=== PATIENT | female | born 1990 | race Caucasian/White ===

== ENCOUNTER 2017-04-13 04:00 | Inpatient (IN) ==
[2017-04-13] MEDS ORDERED: Ondansetron 4 MG/2 ML VIAL IVP PRN (04:04)
[2017-04-13] MEDS ORDERED: Famotidine 20 MG/2 ML VIAL IVP PRN (04:04)
[2017-04-13] MEDS ORDERED: Naloxone 0.4 MG/ML INJ IVP PRN (04:04)
[2017-04-13] MEDS ORDERED: Metoclopramide 10 MG/2 ML VIAL IVP PRN (04:04)
[2017-04-13] MEDS ORDERED: miSOPROStol 25 MCG TABLET PO ONE (04:06)
[2017-04-13] MEDS ORDERED: Ringers Solution, Lactated 1,000 ML IVC SCH (04:15)
[2017-04-13] MEDS ORDERED: D5% in Lactated Ringers 1,000 ML IVC SCH (04:15)
--- NOTE | 2017-04-13 04:32 | OB/GYN History & Physical ---
Date of Encounter: 04/13/17 Time of Encounter: 04:24 Assessment and Plan (1) 39 weeks gestation of Current visit: Yes Status: Acute Admit for IOL due to obesity with BMI 49. GBS negative. Cytotec for induction. Epidural when requested. Will consider AROM when able. Anticipate . (2) Obesity complicating in third trimester Current visit: Yes Status: Acute (3) Large for gestational age fetus affecting management of mother Current visit: Yes Status: Acute Qualifiers: Fetus number: single or unspecified fetus Trimester: third trimester Qualified Code(s): O36.63X0 - Maternal care for excessive growth, third trimester, not applicable or unspecified History of Present Illness Chief complaint: IOL HPI: Ms. Franklin is a 26 year old female presenting at 39w5d for IOL due to obesity and LGA fetus. Ultrasound on 04/06 shows: VTX postition, placenta is anterior grade 2. MANOJ 15.4 cm. EFW 8 LB 4 OZ +/- 548 g=>90% FHR 125 BPP 8/8. The is otherwise uncomplicated. Blood type O positive. Rubella immune. Serologies and GBS negative. Past Med Surg Social Fam HX - Past Medical History Medical history: non-contributory - Social History Smoking Status: Current every day smoker Smokeless Tobacco Status: No Alcohol use: none Obstetrical History - Pregnancies : 1 Medications and Allergies Vit No.124/Iron/FA [ Vitamin Tablet] 1 each PO DAILY #90 tablet 08/24/16 [Rx] Ferrous Sulfate [Iron] 1 tab PO DAILY 04/13/17 [History] 3 Allergy/AdvReac Type Severity Reaction Status Date / Time No Known Allergies Allergy Verified 04/13/17 04:33 Review of System OB All systems PM: reviewed and no additional remarkable complaints except as stated Exam - Constitutional Constitutional: well developed, well nourished, no acute distress, morbidly obese - HEENT HEENT: Mucus Membranes Moist - Lungs Respiratory exam: CTAB - Cardiovascular Cardiovascular exam: RRR, +S1, +S2 - Abdomen Abdomen: Present: gravid, non tender - Anus/Rectum Anus/Rectum: Present: normal perianal skin Results All other labs normal. - VTE Reasons for not Prescribing Prophylaxis: Treatment not Indicated - Low risk for VTE
[2017-04-13 04:37] LABS: Basophils # 0.1 K/mcL (0.0-0.2); Basophils % 0.3 %; Eosinophils # 0.1 K/mcL (0.0-0.6); Eosinophils % 0.6 %; Hematocrit 36.5 % (35.3-44.9); Hemoglobin 11.7 g/dL (11.5-15.4); Immature Granulocytes % 0.6 % (0-4); Lymphocytes # 2.2 K/mcL (0.6-4.6); Lymphocytes % 12.6 %; Mean Corpuscular HGB Conc 32.1 g/dL (31.6-35.5); Mean Corpuscular Hemoglobin 26.1 pg (28.0-33.3); Mean Corpuscular Volume 81.3 fL (83.0-100.0); Mean Platelet Volume 10.9 fL (9.4-12.4); Monocytes # 0.9 K/mcL (0.0-1.3); Monocytes % 5.2 %; Platelet Count 282 K/mcL (140-400); Red Blood Count 4.49 M/mcL (3.82-4.97); Red Cell Distribution Width 15.1 % (11.5-14.5); Segmented Neutrophils % 80.7 %
[2017-04-13 05:13] LABS: Amphetamine Screen,Urine Negative ng/mL (Cutoff=1000); Barbiturate Screen,Urine Negative ng/mL (Cutoff=200); Benzodiazepines Screen,Urine Negative ng/mL (Cutoff=200); Cannabinoid Screen,Urine Negative ng/mL (Cutoff = 50); Cocaine Screen,Urine Negative ng/mL (Cutoff= 300); Opiate Screen,Urine Negative ng/mL (Cutoff=300); Phencyclidine Screen,Urine Negative ng/mL (Cutoff=25)
--- NOTE | 2017-04-13 11:52 | OB Labor Progress Note ---
Date of Encounter: 04/13/17 Time of Encounter: 11:50 Labor Progress Note - Subjective Subjective: The patient is comfortable with her contractions - Vital Signs Vital Signs: Afebrile, vital signs stable - Cervix Cervix: 4/90/-1, vertex a bulgy bag of water - Heart Tones Heart Tones: 130s CAT 1 - [place]: Contractions every 3-5 minutes but difficult to trace, status post 50 MCG's of by mouth Cytotec - Interventions Interventions: Term IUP for induction of labor - Plan Plan: Amniotomy, clear fluid seen. IUPC placed. Continue expectant management, anticipate vaginal delivery
[2017-04-13] MEDS: *HR* Nalbuphine 20 MG/ML AMPUL IVP PRN ×2 (13:02→17:40)
[2017-04-13] MEDS ORDERED: Ringers Solution, Lactated 500 ML IVC ONE (16:42)
[2017-04-13] MEDS ORDERED: EPHEDrine 50 MG/ML VIAL IVP PRN (16:42)
--- NOTE | 2017-04-13 16:42 | Anesthesia Evaluation PreOp ---
Date of Encounter: 04/13/17 Time of Encounter: 16:40 - Past History Planned Operation: ALEXUS Cardiac History: Denies any Significant Hx Pulmonary History: Denies Any Significant HX VETERANS' COORDINATOR History: Denies Any Significant HX Other Medical History: Denies Any Significant HX Anesthesia History: No Prior Anesthetic Complications, Past Anesthesia : Yes (39.5) Alcohol Use: none Drug use: none Medications and Allergies Vit No.124/Iron/FA [ Vitamin Tablet] 1 each PO DAILY #90 tablet 08/24/16 [Rx] Ferrous Sulfate [Iron] 1 tab PO DAILY 04/13/17 [History] 3 Allergy/AdvReac Type Severity Reaction Status Date / Time No Known Allergies Allergy Verified 04/13/17 04:33 - Meds/Allergy Pre-op Review Medications Reviewed: Yes Allergies Reviewed: Yes Beta Blockers on Current Med List: No Anesthesia Results - Labs 04/13/17 04:30 Anesthesia Exam Height: 1.65m Weight: 134kg NPO (# of Hours): 4 Pain Scale: 4 Pain Scale Used: Numeric (1 - 10) - HEENT Pupil (Motor): Pupils equal Mallampati: II Teeth: Normal Oral Opening: Greater than 3 - VETERANS' COORDINATOR LOC: Oriented VETERANS' COORDINATOR Motor: Normal RUE, Normal LUE, Normal RLE, Normal LLE, Normal Face VETERANS' COORDINATOR Sensory: Normal: RUE, LUE, RLE, LLE, Face - Cardiac Rhythm: Regular Murmur: None JVD: No Carotid Bruit: No - Pulmonary Breath Sounds: bilateral Clear Respiratory Effort: Symmetrical Anesthesia Assess/Plan ASA Score: 3 (BMI 49.2) Modified [place] Scale for Level of Consciousness: Cooperative, oriented, and tranquil Anesthetic Plan: General (plan b), Regional (plan a) Autologous Blood: Yes Monitoring Plan: Standard Monitors
[2017-04-13] MEDS ORDERED: Epidural Premix (fent/bupiv) 110 ML EP SCH (16:45)
[2017-04-13] MEDS ORDERED: Oxytocin 20 units/ LR 1000 mL 20 UNIT/1,000 ML BAG IVC SCH (17:00)
[2017-04-13] MEDS ORDERED: Epidural Premix (fent/bupiv) 110 ML EP ONE (17:57)
--- NOTE | 2017-04-13 18:37 | Anesthesia Procedures ---
Date of Encounter: 04/13/17 Time of Encounter: 18:34 Procedures: Anesthesia - Epidural/Spinal Patient ID/Chart reviewed: Yes Patient examined: Yes OB Eval: Gestational age: 39.5 OB Eval: : 1 OB Eval: Hx Para: 0 OB Eval: Dilated at (cm): 5 OB Eval: Contractions: Non-stressed pattern Consent Obtained: Yes Supplemental Oxygen: None/Room Air Site Prep: Aseptic Technique, Sterile prep and drape, Povidone-Iodine 1% Patient position: upright Local Anesthetic: Lidocaine 1% Amount of Local Anesthetic used: 3 Touhy Needle Gauge: 18 Touhy Needle Depth (cm): 10 Catheter Depth at Skin (cm): 20 Test Dose (1.5% Lido + Epi): Volume given (mls): 5 Test Dose Result: Negative Loading Dose: Other: 5ml of epidural pharm bag premix solution Loading Dose Administered: Thru Catheter Infusion Med: 0.125% Bupivacaine w/ 2 mcg/ml Fentanyl Infusion Rate (mls/hr): 12 (3ml q15min pcea) Catheter Secured in Place: Tegaderm, Tape Interspace Used: L3-L4 Loss of Resistance (MULUGETA): Yes Blood: No CSF: No Paresthesia: No Procedure: difficult epidural placement. needle placed x 2 at L4-5. placed x 1 at L3-4. pt did tolerate procedure well. no complications. negative test dose. vss. fhr stable. 143/69 hr 94 151/71 hr 81 fhr 130
--- NOTE | 2017-04-13 19:17 | OB Labor Progress Note ---
Date of Encounter: 04/13/17 Time of Encounter: 19:14 Labor Progress Note - Subjective Subjective: The patient reports being comfortable with her epidural. She does not appreciate contractions at this time - Vital Signs Vital Signs: Afebrile, blood pressures 140s/70s - Cervix Cervix: 5/90/-1 with small caput - Heart Tones Heart Tones: 120s, CAT1 - [place]: Contractions 35-40 mmHg every 2-3 minutes on 4 milliunits of Pitocin - Interventions Interventions: 39 week 5 day IUP for induction of labor, obesity - Plan Plan: Patient is now comfortable with an epidural and Pitocin has been started for augmentation. Patient will be manipulated with the peanut wall and Pitocin increased to adequate labor. Careful observation for arrest of labor
[2017-04-14] MEDS ORDERED: Epidural Premix (fent/bupiv) 110 ML EP ONE ×2 (01:28→07:38)
--- NOTE | 2017-04-14 07:06 | OB Labor Progress Note ---
Date of Encounter: 04/14/17 Time of Encounter: 07:03 Labor Progress Note - Subjective Subjective: The patient is comfortable with her epidural, has used the peanut ball for the last 12 hours - Vital Signs Vital Signs: afeb, VSS - Cervix Cervix: 8-9/100/-1 - Heart Tones Heart Tones: 120s w/ accels - [place]: 25-35 mmHg q 2-3' on 12 mU pitocin - Interventions Interventions: 39w6d IUP, obesity for IOL, GBS neg - Plan Plan: cont with current tx as pt continues to progress. If she shows an arrest of labor, will proceed with section. Pt aware of POC
--- NOTE | 2017-04-14 10:58 | OB Labor Progress Note ---
Date of Encounter: 04/14/17 Time of Encounter: 10:52 Labor Progress Note - Subjective Subjective: Patient complete and had been laboring down. She has pushed for the last hour, making progress with baby moving down. Pt requests to rest and labor down some more. I examined this patient and my medical decision-making was reviewed with the Resident Physician. I agree with the documented findings, disposition and treatment plan as described except to the extent set forth below. - Vital Signs Vital Signs: afeb, normotensive, VSS - Cervix Cervix: complete - Heart Tones Heart Tones: FHR 112-120's, cat 1 tracing - [place]: 45-80mmHg q2-3' on 14mU pitocin - Interventions Interventions: 39w6d IUP, IOL for obesity, GBS- Intrauterine monitor, scalp monitor - Plan Plan: cont with current tx and continue pushing after a period of laboring down. If she shows an arrest of labor, will proceed with section. Pt aware of POC
--- NOTE | 2017-04-14 14:05 | OB/GYN Procedure Note ---
Delivery - Delivery Date: 04/14/17 Provider: Mili Willis Intrapartum events: prolonged labor- > = 20hr Delivery induction: misoprostol Delivery augmentation: rupture of membranes, pitocin Delivery monitor: external FHT, external uterine, internal FHT, internal uterine Anesthesia: local, intravenous, epidural Estimated Blood Loss: 300 - Infant (s) A Infant Delivery Date: 04/14/17 Infant Delivery Time: 13:12 Presentation: vertex Position: RACQUEL Route of delivery: Gender: Male Viability: Viable Pounds: 8 Ounces: 8 Weight Gram: 3.85 kg at 1 minute: 8 at 5 mins: 9 Shoulder Dystocia: not encountered Specimens collected: cord blood Placenta: spontaneous, uterine exploration Cord: nuchal cord, 3 umbilical vessels, nuchal reduced - Repair Episiotomy: none Laceration Description: Labial (bilateral) - Complications Delivery complications: uterine atony Delivery comments: The patient was complete and pushing with epidural anesthesia with a spontaneous vaginal delivery in the RACQUEL position of a vigorous male weighing 8 lbs. 8oz. with Apgars of 8 at 1 minute and 9 at 5 minutes. was placed on the maternal abdomen. The cord was clamped and cut after pulsations ceased. Cord blood obtained. The placenta was delivered spontaneous and intact. Bilateral labial lacerations were injected with 1% lidocaine with epinephrine 10 mL and closed with 4-0 Monocryl in a running nonlocking fashion. There was brisk bleeding following the spontaneous delivery of the placenta. The uterine cavity was digitally palpated, no retained products of conception were appreciated. By mouth Cytotec 200 g and Methergine 0.2 mg IM were given along with vigorous fundal massage. Good response was noted. The bladder was straight cathetered and 100 mL of clear urine was drained. Estimated blood loss 300 mL, complications none - Disposition Mom disposition: stable in LDR [place] disposition: stable in LDR
[2017-04-14] MEDS ORDERED: Acetaminophen 325 MG TABLET PO PRN (15:55)
[2017-04-14] MEDS ORDERED: Measles/Mumps/Rubella Vacc 0.5 ML VIAL SQ PRN (15:55)
[2017-04-14] MEDS ORDERED: Oxytocin 20 units/ LR 1000 mL 20 UNIT/1,000 ML BAG IVC SCH (15:55)
[2017-04-14] MEDS ORDERED: *HR* HYDROcodone/Acet 5/325 mg TABLET PO PRN (15:55)
[2017-04-14] MEDS ORDERED: Rho Immune Globulin 1,500 UNIT SYRINGE IM PRN (15:55)
[2017-04-14] MEDS ORDERED: Mag Hydrox/Al Hydrox/Simeth 30 ML UDC PO PRN (18:22)
[2017-04-14] MEDS: Ibuprofen 600 MG TABLET PO SCH (22:06)
[2017-04-15 05:35] LABS: Basophils # 0.1 K/mcL (0.0-0.2); Basophils % 0.2 %; Eosinophils # 0.1 K/mcL (0.0-0.6); Eosinophils % 0.6 %; Hematocrit 24.7 % (35.3-44.9); Immature Granulocytes % 0.9 % (0-4); Lymphocytes # 2.8 K/mcL (0.6-4.6); Lymphocytes % 13.9 %; Mean Corpuscular Hemoglobin 25.9 pg (28.0-33.3); Mean Platelet Volume 10.4 fL (9.4-12.4); Monocytes # 1.6 K/mcL (0.0-1.3); Monocytes % 7.7 %; Neutrophils # 15.5 K/mcL (1.6-8.9); Platelet Count 234 K/mcL (140-400); Red Blood Count 3.05 M/mcL (3.82-4.97); Red Cell Distribution Width 15.3 % (11.5-14.5); Segmented Neutrophils % 76.7 %
[2017-04-15 05:42] LABS: Hemoglobin 7.9 g/dL (11.5-15.4)
[2017-04-15] MEDS ORDERED: Prenatal Vit/FA 1 EACH TABLET PO SCH (09:00)
[2017-04-15] MEDS: Ibuprofen 600 MG TABLET PO SCH (09:20)
[2017-04-15 10:09] VITALS: BP 119/78
--- NOTE | 2017-04-15 11:28 | Discharge Summary ---
Date of Encounter: 04/15/17 Time of Encounter: 11:26 - Discharge Diagnosis (1) Vaginal delivery Priority: Primary Status: Acute Comments: Pt meeting all milestones. - Discharge Medications Prescriptions: Ibuprofen [Motrin] 600 mg PO Q6HR #60 tablet Docusate [Colace] 100 mg PO BID #60 capsule Ferrous Sulfate 325 mg PO BID #60 tablet Home Medications: Vit No.124/Iron/FA [ Vitamin Tablet] 1 each PO DAILY #90 tablet 08/24/16 [Rx] Docusate [Colace] 100 mg PO BID #60 capsule 04/15/17 [Rx] Ferrous Sulfate 325 mg PO BID #60 tablet 04/15/17 [Rx] Ibuprofen [Motrin] 600 mg PO Q6HR #60 tablet 04/15/17 [Rx] Allergies/Adverse Reactions: 3 Allergy/AdvReac Type Severity Reaction Status Date / Time No Known Allergies Allergy Verified 04/13/17 04:33 Data Procedures and tests throughout hospitalization: Laboratory Tests 04/13/17 04/13/17 04/15/17 04:30 04:52 05:26 WBC 17.4 H 20.3 H RBC 4.49 3.05 L Hgb 11.7 7.9 L D Hct 36.5 24.7 L MCV 81.3 L 81.0 L MCH 26.1 L 25.9 L MCHC 32.1 32.0 RDW 15.1 H 15.3 H Plt Count 282 234 MPV 10.9 10.4 Immature Gran % 0.6 0.9 Seg Neutrophils % 80.7 76.7 Lymphocytes % 12.6 13.9 Monocytes % 5.2 7.7 Eosinophils % 0.6 0.6 Basophils % 0.3 0.2 Neutrophils # 14.0 H 15.5 H Lymphocytes # 2.2 2.8 Monocytes # 0.9 1.6 H Eosinophils # 0.1 0.1 Basophils # 0.1 0.1 Urine Opiates Screen Negative Ur Barbiturates Screen Negative Ur Phencyclidine Scrn Negative Ur Amphetamines Screen Negative U Benzodiazepines Scrn Negative Urine Cocaine Screen Negative U Marijuana (THC) Screen Negative Labs on day of discharge: Labs from last 24 hours 04/15/17 05:26 WBC 20.3 H RBC 3.05 L Hgb 7.9 L D Hct 24.7 L MCV 81.0 L MCH 25.9 L MCHC 32.0 RDW 15.3 H Plt Count 234 MPV 10.4 Immature Gran % 0.9 Seg Neutrophils % 76.7 Lymphocytes % 13.9 Monocytes % 7.7 Eosinophils % 0.6 Basophils % 0.2 Neutrophils # 15.5 H Lymphocytes # 2.8 Monocytes # 1.6 H Eosinophils # 0.1 Basophils # 0.1 Date of admission: 04/13/17 04:00 Primary care physician: PCP ALEJANDRO Consults: 04/14/17 15:55 Consult to Plaque Maker [CONS] Routine Comment: Vaginal delivery, consult needed Discharging clinician: Taya Whipple Anticipated date of discharge: 04/15/17 - Patient Status Disposition: Home, Self-Care Condition: Good Functional capacity at discharge: independent ambulation Overall status at discharge: patient is progressing back to baseline - Discharge Instructions Follow Up With: NONE,PCP [Primary Care Provider] - Mili Willis MD [Partnered Physician] - - Diet and Activity Activity: increase activity as tolerated Hospital Course Reason for admission: induction of labor Delivery: Episiotomy: none Laceration: other (labial) complications: none Discharge diagnosis: IUP at term delivered [place] baby: male Hospital course: - Delivery Date: 04/14/17 Provider: Mili Willis Intrapartum events: prolonged labor- > = 20hr Delivery induction: misoprostol Delivery augmentation: rupture of membranes, pitocin Delivery monitor: external FHT, external uterine, internal FHT, internal uterine Anesthesia: local, intravenous, epidural Estimated Blood Loss: 300 - Infant (s) A Infant Delivery Date: 04/14/17 Delivery Time: 13:12 Presentation: vertex Position: RACQUEL Route of delivery: Gender: Male Viability: Viable Pounds: 8 Ounces: 8 Weight Gram: 3.85 kg at 1 minute: 8 at 5 mins: 9 Shoulder Dystocia: not encountered Specimens collected: cord blood Placenta: spontaneous, uterine exploration Cord: nuchal cord, 3 umbilical vessels, nuchal reduced - Repair Episiotomy: none Laceration Description: Labial (bilateral) - Complications Delivery complications: uterine atony - Disposition Mom disposition: home PPD1 disposition: home with mother, bottle feeding Time Attestation: Total time spent providing and/or coordinating discharge services: Time Spent: Less than 30 minutes Exam - Constitutional Vitals: Temp Pulse Resp BP Pulse Ox 97.8 F 90 16 119/78 99 04/15/17 09:53 04/15/17 09:53 04/15/17 09:53 04/15/17 09:53 04/15/17 04:05 General appearance IM: A&O X 3, pleasant, no acute distress - Respiratory Respiratory exam: Present: CTAB - Cardiovascular Cardiovascular exam IM: Present: RRR, +S1, +S2 - GI/Abdominal GI/Abdominal exam IM: soft - Uterine Tone: Firm - Extremities Exam Extremities exam IM: Present: normal inspection - Neurological Exam Neurological exam: normal gait, oriented X3 - Psychiatric Additional comments: reports good mood
== END 2017-04-15 15:30 | disposition home or self-care (01) | DRG 560 ==
LOC: 1NENULAB 04:00 → 1NENUOBS 04-14 15:54
PROVIDERS: ADMIT Obstetrics & Gynecology; ATTEND Obstetrics & Gynecology